=== PATIENT | male | born 1995 | race Two or more races ===

== ENCOUNTER 2019-01-27 02:24 | Emergency (ER) | payer OTHER ==
[~2019-01-27] VITALS: Ht 167.6 cm; Wt 79.4 kg
[2019-01-27 02:57] LABS: Basophils # (auto) 0 uL; Basophils % (auto) 0.8 % (0.0-2.0); Eosinophils # (auto) 0.1 uL; Eosinophils % (auto) 1.6 % (0.0-7.0); Hematocrit 47.2 % (41.0-53.0); Hemoglobin 15.8 g/dL (13.5-17.5); Lymphocytes # (auto) 2.4 uL; Lymphocytes % (auto) 37.1 % (10.0-50.0); Mean Corpuscular Hemoglobin 30.1 pg (28.0-32.0); Mean Corpuscular Hgb Conc. 33.5 g/dL (32.0-36.0); Mean Corpuscular Volume 89.9 fL (80.0-100.0); Monocytes # (auto) 0.6 uL; Monocytes % (auto) 9.9 % (0.0-12.0); Neutrophils # (auto) 3.2 uL; Neutrophils % (auto) 50.6 % (37.0-80.0); Platelet Count (auto) 206 10^3/uL (140-450); Red Blood Cells 5.25 10^6/uL (4.5-5.90); Red Cell Distribution Width 12.6 % (11.8-14.3); White Blood Cell 6.4 10^3/uL (4.4-10.8)
[2019-01-27 03:15] LABS: Urine Bacteria NONE SEEN /hpf (None Seen); Urine Blood Negative /uL (Negative); Urine Specific Gravity 1.003 (1.001-1.035); Urine WBC <1 /hpf (0 - 3)
[2019-01-27 03:15] LABS: Alanine Aminotransferase 66 U/L (16-61); Albumin 3.7 g/dL (3.4-5.0); Anion Gap 7 (5-15); Aspartate Aminotransferase 127 U/L (15-37); BUN/Creatinine Ratio 17.5; Blood Alcohol < 3.0 mg/dL (0-5); Blood Urea Nitrogen 17 mg/dL (7-18); Calcium 8.6 mg/dL (8.5-10.1); Carbon Dioxide 30 mmol/L (21-32); Chloride 101 mmol/L (98-107); GFR African American 123 mL/min; GFR Non-African American 102 mL/min; Glucose 157 mg/dL (74-106); Magnesium 2.3 mg/dL (1.6-2.6); Potassium 3.6 mmol/L (3.5-5.1); Sodium 138 mmol/L (136-145)
[2019-01-27 03:17] LABS: Alcohol, Urine < 3.0 mg/dL (0-5); Amphetamine Screen, Urine NEGATIVE (NEGATIVE); Barbiturate Scree,Urine NEGATIVE (NEGATIVE); Benzodiazephine Screen, Urine NEGATIVE (NEGATIVE); Cannabinoid Screen, Urine NEGATIVE (NEGATIVE); Cocaine Screen, Urine NEGATIVE (NEGATIVE); Opiate Scree,Urine NEGATIVE (NEGATIVE); Phencyclidine Screen, Urine NEGATIVE (NEGATIVE)
[2019-01-27 03:19] LABS: Alkaline Phosphatase 65 U/L (45-117); Bilirubin, Total 0.4 mg/dL (0.2-1.0); Total Protein 7.2 g/dL (6.4-8.2)
[2019-01-27 07:16] VITALS: BP 148/93
== END 2019-01-27 07:39 | disposition home or self-care (01) ==
LOC: EDBD 02:24 → ER 02:26
DX: R07.89 Other chest pain (principal); R94.5 Abnormal results of liver function studies; F10.10 Alcohol abuse, uncomplicated; E11.9 Type 2 diabetes mellitus without complications; F17.210 Nicotine dependence, cigarettes, uncomplicated; Y90.0 Blood alcohol level of less than 20 mg/100 ml
CPT/HCPCS: 36415; 71045; 80053; 80307; 80320; 81001; 83735; 84484; 85025; 93005